=== PATIENT | male | born 1990 | race Two or more races ===

== ENCOUNTER 2020-11-19 19:39 | Emergency (ER) | payer SELFPAY ==
[~2020-11-19] VITALS: Ht 182.9 cm; Wt 72.6 kg
[2020-11-19 21:15] VITALS: BP 131/86
== END 2020-11-19 22:05 | disposition home or self-care (01) ==
LOC: EDBD 19:39 → ER 19:52
DX: S82.891A Other fracture of right lower leg, initial encounter for closed fracture (principal); X58.XXXA Exposure to other specified factors, initial encounter; Y93.89 Activity, other specified; Y92.89 Other specified places as the place of occurrence of the external cause; Y99.8 Other external cause status
CPT/HCPCS: 29515; 73610